=== PATIENT | male | born 1995 | race Caucasian/White ===

== ENCOUNTER 2024-05-06 10:09 | Emergency (ER) | payer MEDICAID ==
[~2024-05-06] VITALS: Ht 175.3 cm; Wt 100.0 kg
[2024-05-06 10:13] VITALS: O2SAT 98
[2024-05-06 10:57] VITALS: BP 133/78; PULSE 85; RESP 18; TEMP 98.5; O2SAT 98
[2024-05-06 11:47] LABS: CLARITY URINE TURBID (CLEAR); COLOR URINE YELLOW (YELLOW); GLUCOSE URINE NEGATIVE (NEGATIVE); KETONES URINE NEGATIVE (NEGATIVE); LEUKOCYTE ESTERASE URINE NEGATIVE (NEGATIVE); NITRITE URINE NEGATIVE (NEGATIVE); OCCULT BLOOD URINE NEGATIVE (NEGATIVE); PH URINE 7.5 (4.5-8.0); PROTEIN URINE NEGATIVE (NEGATIVE); SPECIFIC GRAVITY URINE 1.022 (1.005-1.030); UROBILINOGEN URINE 0.2 E.U./dL (0.2-1.0)
[2024-05-06 11:57] LABS: AMORPHOUS SEDIMENT URINE 3+ /lpf; BACTERIA URINE 2+; RBC URINE NONE SEEN /hpf (0-2); SQUAMOUS EPITHELIAL CELL URINE NONE SEEN /lpf (RARE/1+); YEAST URINE NONE SEEN
[2024-05-06] MEDS: AZITHROMYCIN 500 MG TABLET PO ONE (11:58)
[2024-05-06] MEDS: CEFTRIAXONE SODIUM 500MG VIAL IM ONE (11:58)
[2024-05-06] MEDS ORDERED: VALA100044 MT (12:49)
[2024-05-09 13:11] LABS: CHLAMYDIA TRACHOMATIS NAA Negative (Negative); NEISSERIA GONORRHOEAE NAA Negative (Negative)
== END 2024-05-06 13:01 | disposition home or self-care (01) ==
LOC: ER 10:09
DX: Z00.00 Encounter for general adult medical examination without abnormal findings (principal)
CPT/HCPCS: 87491; 87591; 81003; 96372; 99283; J0696; Z7610 ×2